=== PATIENT | male | born 1960 | race Caucasian/White ===

== ENCOUNTER 2019-02-19 02:49 | Emergency (ER) | payer MEDICAID ==
[~2019-02-19] VITALS: Ht 188 cm; Wt 127.0 kg
[2019-02-19 03:34] LABS: Basophils # (auto) 0 uL; Basophils % (auto) 0.1 % (0.0-2.0); Eosinophils # (auto) 0.2 uL; Eosinophils % (auto) 1.3 % (0.0-7.0); Hematocrit 43.3 % (41.0-53.0); Hemoglobin 14.9 g/dL (13.5-17.5); Lymphocytes # (auto) 1.5 uL; Lymphocytes % (auto) 12.2 % (10.0-50.0); Mean Corpuscular Hemoglobin 30.1 pg (28.0-32.0); Mean Corpuscular Hgb Conc. 34.4 g/dL (32.0-36.0); Mean Corpuscular Volume 87.5 fL (80.0-100.0); Monocytes # (auto) 1.3 uL; Monocytes % (auto) 10.5 % (0.0-12.0); Neutrophils # (auto) 9.3 uL; Neutrophils % (auto) 75.9 % (37.0-80.0); Platelet Count (auto) 215 10^3/uL (140-450); Red Blood Cells 4.95 10^6/uL (4.5-5.90); Red Cell Distribution Width 14.4 % (11.8-14.3); White Blood Cell 12.3 10^3/uL (4.4-10.8)
[2019-02-19 03:52] LABS: Calcium 8.7 mg/dL (8.5-10.1); Chloride 103 mmol/L (98-107); Potassium 3.4 mmol/L (3.5-5.1); Sodium 138 mmol/L (136-145)
[2019-02-19 04:00] LABS: Alanine Aminotransferase 21 U/L (16-61); Albumin 3.8 g/dL (3.4-5.0); Alkaline Phosphatase 82 U/L (45-117); Amylase 23 U/L (25-115); Anion Gap 8 (5-15); Aspartate Aminotransferase 11 U/L (15-37); BUN/Creatinine Ratio 10.1; Blood Urea Nitrogen 14 mg/dL (7-18); Carbon Dioxide 27 mmol/L (21-32); GFR African American 67 mL/min; GFR Non-African American 56 mL/min; Glucose 103 mg/dL (74-106); Lipase 60 U/L (73-393); Total Protein 7.6 g/dL (6.4-8.2)
[2019-02-19] MEDS ORDERED: IODIXANOL 320MG/ML 100ML BTL IV ONE (04:08)
[2019-02-19] MEDS ORDERED: BARIUM SULFATE 98% 340 GM PWDR ONE (04:09)
[2019-02-19] MEDS ORDERED: ONDANSETRON HCL 4 MG/2 ML VIAL IV ONE (05:00)
[2019-02-19] MEDS ORDERED: KETOROLAC TROMETH 30 MG/ML 1ML VIAL IV ONE (05:00)
[2019-02-19] MEDS ORDERED: MORPHINE SULFATE 10 MG/ML INJ 1ML SDV IV ONE (05:15)
[2019-02-19] MEDS ORDERED: fentaNYL CITRATE 100 MCG/2 ML VL IV ONE (05:45)
[2019-02-19] MEDS ORDERED: DICYCLOMINE HCL 10 MG CAP PO ONE (05:45)
[2019-02-19 07:14] VITALS: BP 112/73
== END 2019-02-19 07:27 | disposition home or self-care (01) ==
LOC: EDBD 02:49 → ER 02:49
DX: K80.80 Other cholelithiasis without obstruction (principal)
CPT/HCPCS: 36415; 71045; 71260; 74176; 74177; 80053; 82150; 83605; 83690; 84484; 85025; 87040; 96374; 96375; 99284; J0500; J1885; J2270; J2405; Q9967

== ENCOUNTER 2023-06-18 17:30 | Emergency (ER) | payer MEDICAID ==
[~2023-06-18] VITALS: Ht 193 cm; Wt 172.5 kg
[2023-06-18 18:42] LABS: Chloride 105 mmol/L (98-107); Potassium 3.8 mmol/L (3.5-5.1); Sodium 139 mmol/L (136-145)
[2023-06-18 18:43] LABS: Anion Gap 6 (5-15); Calcium 8.9 mg/dL (8.7-10.4); Carbon Dioxide 28 mmol/L (20-30)
[2023-06-18 18:48] LABS: BUN/Creatinine Ratio 11.8 (10.0-20.0); Blood Urea Nitrogen 13 mg/dL (9-23); Glucose 112 mg/dL (74-106)
[2023-06-18 19:06] LABS: Basophils # (auto) 0.1 10 ^3/uL (0-0.2); Basophils % (auto) 0.8 % (0.0-2.0); Eosinophils # (auto) 0.4 10 ^3/uL (0-0.8); Eosinophils % (auto) 5.1 % (0.0-7.0); Hematocrit 41.3 % (41.0-53.0); Hemoglobin 14.1 g/dL (13.5-17.5); Lymphocytes # (auto) 1.3 10 ^3/uL (0.4-5.4); Lymphocytes % (auto) 18.1 % (10.0-50.0); Mean Corpuscular Hemoglobin 28.5 pg (28.0-32.0); Mean Corpuscular Hgb Conc. 34.1 g/dL (32.0-36.0); Mean Corpuscular Volume 83.6 fL (80.0-100.0); Monocytes # (auto) 0.5 10 ^3/uL (0-1.3); Monocytes % (auto) 6.3 % (0.0-12.0); Neutrophils % (auto) 69.7 % (37.0-80.0); Nucleated Red Blood Cells % 0.6 %; Red Blood Cells 4.94 10^6/uL (4.5-5.90); Red Cell Distribution Width 15.4 % (11.8-14.3); White Blood Cell 7.1 10^3/uL (4.4-10.8)
[2023-06-18] MEDS ORDERED: SERTRALINE HCL 50 MG TAB PO ONE (20:00)
[2023-06-18 23:20] VITALS: BP 156/83; PULSE 65; RESP 17; TEMP 98.3; O2SAT 95
== END 2023-06-18 23:22 | disposition home or self-care (01) ==
LOC: ER 17:30 → EDBD 17:30 → ER 23:21
DX: F41.9 Anxiety disorder, unspecified (principal); F32.9 Major depressive disorder, single episode, unspecified; E78.5 Hyperlipidemia, unspecified; I10 Essential (primary) hypertension
CPT/HCPCS: 36415; 80048; 83880; 84484; 85025; 85379; 93005